=== PATIENT | female | born 1970 | race Caucasian/White ===

== ENCOUNTER 2025-02-05 01:31 | Inpatient (IN) | payer MEDICAID ==
[2025-02-05] VITALS (19 sets, daily range): BP systolic 125–159; BP diastolic 67–88; PULSE 68–96; RESP 12–20; TEMP 97.1–98.5; O2SAT 93–98
[~2025-02-05] VITALS: Ht 165.1 cm; Wt 89.0 kg
--- NOTE | 2025-02-05 01:52 | Physician Documentation ---
History of Present Illness ~ Chief Complaint: Chest Pain Stated Complaint: CHEST PAIN Time Seen by MD: 01:37 OK to notify your PCP?: Yes Source: patient, RN/MD, RN notes reviewed, old records Mode of Arrival: Air Transport Exam Limitations: no limitations HPI 54 year old female presents to the emergency department via Helicopter seen in bed 02 as a transfer from [facility] due to an Nstemi. HPI from [place]: This is a 54 year old lady presents here ([place]) for leg swelling for the fourth day in the row. She has chronically elevated sugars and poorly controlled high blood pressure has been having leg swelling on and off for weeks. She went floating in the river and may have gotten too much sun and has been swelling since then. The patients edema radiates up to her hips with pain radiating up as well as on both sides. She has had intermittent chest pain as a pain left side radiating through to the back, the last episode she had of chest pain was yesterday it resolves with aspirin and nitro, she has not taken any nitro today. She does take her regular aspirin. She does not have a regulatory auditor has not had any recent cardiac evaluation. XR Chest 1 view from [place]: Impression: No evidence of acute cardiopulmonary disease. Medication Reconciliation Allergies: Coded Allergies: metformin (Verified Adverse Reaction, Unknown, VOMIT, DIARRHEA, 02/05/25) morphine (Verified Adverse Reaction, Unknown, HALLUCINATIONS, 02/05/25) Scheduled Amlodipine Besylate (Amlodipine Besylate), 1 TAB PO DAILY, (Reported) Atorvastatin Calcium (Atorvastatin Calcium), 1 TAB PO DAILY, (Reported) Gabapentin (Gabapentin), 1 CAP PO TID, (Reported) Glipizide (Glipizide), 1 TAB PO DAILY, (Reported) Insulin Glargine,Hum.rec.anlog* (Lantus*), 20 UNITS SQ QAM, (Reported) Insulin Lispro (Humalog), SQ TID, (Reported) Latanoprost (Latanoprost), 1 DROP EACHEYE HS, (Reported) Metoprolol Succinate (Metoprolol Succinate), 1 TAB PO DAILY, (Reported) Scheduled PRN Hydrocodone Bit/Acetaminophen 5/325 MG ([place] 5/325 MG), 1-2 TAB PO Q4H PRN for pain, (Reported) Miscellaneous Medications Dorzolamide HCl/Timolol Maleat (Dorzolamide-Timolol Eye Drops), LIAMEYE, (Reported) Ibuprofen (Ibuprofen), (Reported) Past Medical History Past Medical History: Hypertension, Diabetes, Chronic Back Pain Smoking Status: Light Tobacco User Drug Use: methamphetamine Review of Systems All Other Systems at this time: Reviewed and Negative ROS As stated above in the HPI, otherwise all systems are reviewed and negative. Physical Exam Vital Signs: RN Vital Signs have been reviewed: Yes, Temperature: 98.4, Source: Oral, Heart Rate: 80, Respiratory Rate: 18, BP: 130/75, Pulse Oximetry: 94, Weight: 89.000 Pulse Oximetry Reflects: adequate oxygenation Physical Exam General: The patient is well developed, well nourished, nontoxic appearing and is in no acute distress. Skin: Brea, warm and dry with no rashes. HEENT: Head was normocephalic and atraumatic. Eyes - pupils equal, round, reactive to light and accommodation. Extraocular movements were intact. Conjunctivae were nonicteric. Ears - bilateral tympanic membranes were normal. The mouth and oropharynx were clear with moist mucous membranes. There were no pharyngeal exudates or erythema. Neck: Supple and nontender. There was no jugular venous distention, lymphadenopathy, thyromegaly or masses. Chest: Clear to auscultation bilaterally without wheezes, rales or rhonchi. No accessory muscle use. No dullness to percussion. Heart: Rate regular and rhythmic. S1, S2. No murmurs. Palpation of the chest wall was normal. No rubs or thrills. Abdomen: Soft, nontender and nondistended. Positive bowel sounds. No guarding or rebound. No hepatosplenomegaly or palpable masses. Extremities: Positive for 1+ edema extends up to hips. The patient moves all extremities. Pulses were equal and symmetric. Neurologic: Cranial nerves II-XII were intact. Sensation was intact to light touch throughout. Motor strength was 5/5 in all four extremities. Deep tendon reflexes were intact in both upper and lower extremities. Psychologic: The patient was oriented to person, place and time. The patient demonstrated appropriate judgement and insight. Progress Progress Note 0201 :The resident was informed on the patients case and kindly agreed to admission of the patient. Results/Orders Reviewed/noted all lab results: Yes Results/Orders Orders - MISSAEL CAIN MD MG (02/05/25 01:37) PBNP (02/05/25 01:37) Electrocardiogram (02/05/25 01:37) BMP (02/05/25 01:37) Carvedilol Tablet (Coreg Tablet) (02/05/25 01:55) Page Hospitalist (02/05/25 01:52) Echocardiogram (02/05/25 01:56) Hgb A1c (02/05/25 01:48) Completed Orders - MISSAEL CAIN MD Cbc/Diff (02/05/25 01:37) Pt Inr (02/05/25 01:37) PTT (02/05/25 01:37) Hs Troponin I W Calculations (02/05/25 01:37) Nitroglycerin 0.2mg/Hour Patch (Nitro-Du (02/05/25 01:55) Drug Screen, Urine (02/05/25 02:03) Ua W/Microscopic, Cult If Ind (02/05/25 02:35) Medications Received in ER Medications (Trade) Dose Ordered Sig/Jayleen Route PRN Reason Start Time Stop Time Status Last Admin Dose Admin (Coreg tablet) 3.125 mg ONCE PO 02/05/25 01:55 02/05/25 02:18 3.125 MG Vital Signs 02/05/25 02/05/25 01:32 01:40 Temp 98.4 Pulse 80 Resp 16 18 B/P (MAP) 130/75 Pulse Ox 94 Laboratory Tests Test 02/05/25 01:48 White Blood Count 9.8 Red Blood Count 4.78 Hemoglobin 14.6 Hematocrit 40.8 Mean Corpuscular Volume 85.3 Mean Corpuscular Hemoglobin 30.5 Mean Corpuscular Hemoglobin Concent 35.8 Red Cell Distribution Width 13.0 Platelet Count 291 Mean Platelet Volume 8.4 Neutrophils (%) (Auto) 50.1 Lymphocytes (%) (Auto) 37.7 Monocytes (%) (Auto) 7.6 Eosinophils (%) (Auto) 3.8 Basophils (%) (Auto) 0.8 Neutrophils # (Auto) 4.9 Lymphocytes # (Auto) 3.7 Monocytes # (Auto) 0.7 Eosinophils # (Auto) 0.4 Basophils # (Auto) 0.1 CBC Comment Prothrombin Time 9.8 INR International Normalized Ratio 1.0 Activated Partial Thromboplast Time 27 Coagulation Comments Sodium Level 139 Potassium Level 4.2 Chloride Level 104 Carbon Dioxide Level 27.7 Anion Gap 7 L Blood Urea Nitrogen 30 H Creatinine 1.28 H Estimated GFR/1.73 m2 44 BUN/Creatinine Ratio 23.4 H Glucose Level 325 H Calcium Level 7.9 L Magnesium Level 2.2 Troponin I High Sensitivity 146 *H Pro-B-Type Natriuretic Peptide 372 H Albumin 2.8 L Chemistry Comments Re-Evaluation Re-Evaluation : Re-Evaluation: Improved, Unchanged Progress Patient was seen and examined. Patient is given reassurance. Patient arrived by air flight and transferred to our facility. Patient's laboratory work was reordered. Patient's CBC is within normal limits without leukocytosis, anemia or any abnormalities. Patient's chemistry was obtained once again troponin was elevated at 146. ProBNP slightly elevated at 372 albumin low at 2.8 BUN slightly elevated at 30 and creatinine slightly elevated at 1.28 otherwise chemistries were reassuring coagulation was obtained patient did receive Lovenox. Patient's tox screen was positive for opiates but otherwise within normal limits and urinalysis showed some proteinuria as well as some glucosuria and some mild dehydration with a specific gravity of 1.030 patient received nitroglycerin as well as some Coreg. Echocardiogram was ordered. Patient was then admitted to the hospitalist service for possible cardiac catheterization and additional workup. Continuous registered nurse cardiac telemetry interpretation shows normal sinus rhythm heart rate 80s, no ectopy, normal, my interpretation. Pulse oximetry monitor interpretation shows normal oxygenation at 95% room air, normal, my interpretation. EKG/XRAY/CT/US/VASC/MRI EKG : Additional Comment 0136: MIKAELA Cain interpreted EKG to show sinus rhythm at a rate of 71 with a QTc of 4560. Patient had poor R wave progression. Heart Score: Heart Score Response (Comments) Value History Slightly Suspicious 0 EKG Normal 0 Age 45-64 1 Risk Factors 1 or 2 risk factors 1 Troponin 1-2 x's Normal limit 1 Total 3 Medical Decision Making Additional info obtained from: old records Differential Dx:Considerations: Include: angina, aortic dissection, chest wall pain, cholelithiasis, CHF, costochondritis, gastritis, myocardial infarction, pericarditis, pleuritis, pulmonary embolus, other Departure Time of Disposition: 02:07 Disposition: ADMITTED INPATIENT Admitted to Inpatient Unit: yes, to hospitalist Admission Level of Care: PCU with Tele Impression: Primary Impression: NSTEMI (non-ST elevated myocardial infarction) Additional Impressions: Hyperglycemia Renal insufficiency Leg edema, right Condition: Fair Referrals: NO PRIMARY CARE PROVIDER (PCP) Education Educated: Patient Educated regarding: diagnosis Critical Care Note Total Time (mins): 30 Critical Care Note The very real possibility of a deterioration of this patient's condition required the highest level of my preparedness for sudden, emergent intervention. I provided critical care services, which included medication orders, frequent reevaluations of the patient's condition and response to treatment, ordering and reviewing test results, and discussing the case with various consultants. Excludes time spent performing separately billable procedures. The critical care time associated with the care of the patient was 30 minutes. Signature Scribe Signature: Scribed for Missael Cain MD by Christianne Bowden . 02/05/25 02:07 Attestation: The note accurately reflects work and decisions made by me.Missael Cain MD 02/05/25 01:52 MISSAEL CAIN MD Feb 05, 2025 01:52 CHRISTIANNE PATEL Feb 05, 2025 01:59
[2025-02-05 01:53] LABS: MEAN PLATELET VOLUME 8.4 FL (7.4-10.4); RED CELL DISTRIBUTION WIDTH 13.0 % (11.5-14.5)
[2025-02-05 02:08] LABS: APTT 27 SECONDS (22-32); INR 1.0 INR
[2025-02-05 02:16] LABS: CREATININE 1.28 MG/DL (0.40-0.90); PRO BRAIN NATRIURETIC PEPTIDE 372 PG/ML (0-125); TOTAL CARBON DIOXIDE 27.7 MMOL/L (24-32); eCRCL 46 ML/MIN; eGFR 44 ML/MIN
[2025-02-05] MEDS ORDERED: LATA2.5D7 EACHEYE (02:30)
[2025-02-05] MEDS ORDERED: IBUP-1985 (02:30)
[2025-02-05] MEDS ORDERED: ATOR-2 PO (02:30)
[2025-02-05] MEDS ORDERED: LANTUS SQ (02:30)
[2025-02-05] MEDS ORDERED: INSU100I8 SQ (02:30)
[2025-02-05] MEDS ORDERED: GABA-535 PO (02:30)
[2025-02-05] MEDS ORDERED: HYDR-3965 PO (02:30)
[2025-02-05] MEDS ORDERED: METO-384 PO (02:30)
[2025-02-05] MEDS ORDERED: GLIP5TAB23 PO (02:30)
[2025-02-05] MEDS ORDERED: AMLO5TAB16 PO (02:30)
[2025-02-05] MEDS ORDERED: DORZ10DR10 EACHEYE (02:30)
[2025-02-05 02:44] LABS: LEUKOCYTE ESTERASE ,URINE NEGATIVE (Neg); NITRITES, URINE NEGATIVE (Neg); OCCULT BLOOD,URINE SMALL (Neg)
[2025-02-05 02:45] LABS: UA COLLECTION TYPE CLN CATCH MIDSTREAM
[2025-02-05 02:51] LABS: MUCUS STRANDS FEW /LPF (Neg); SQUAMOUS EPITHELIAL CELL,UR MANY /LPF (FEW)
[2025-02-05 02:52] LABS: URINE AMPHETAMINE SCREEN NEGATIVE (Neg); URINE BARBITUATE SCREEN NEGATIVE (Neg); URINE BENZODIAZEPINES SCREEN NEGATIVE (Neg); URINE CANNABINOID SCREEN NEGATIVE (Neg); URINE COCAINE SCREEN NEGATIVE (Neg); URINE METHADONE SCREEN NEGATIVE (Neg); URINE OPIATE SCREEN POSITIVE (Neg); URINE PHENCYCLIDINE SCREEN NEGATIVE (Neg)
[2025-02-05 02:53] LABS: AMORPHOUS URATES 1+; HYALINE CASTS 0-3 /LPF (NEGATIVE)
[2025-02-05] MEDS ORDERED: magnesium sulf-water 2g/50mL 50 ML IV PRN (03:30)
[2025-02-05] MEDS ORDERED: potassium Cl 20 mEq SR tablet PO PRN ×2 (03:30)
[2025-02-05] MEDS ORDERED: HYDROcodone/acetaminophen 5mg/325mg tablet PO PRN ×2 (03:30→17:15)
[2025-02-05] MEDS ORDERED: magnesium sulf-water 4G/100mL 100 ML IV PRN (03:30)
[2025-02-05] MEDS ORDERED: mag hydrox/Alum hydrox/simeth 30ml oral suspension PO PRN (03:30)
[2025-02-05] MEDS ORDERED: ondansetron/PF 4mg/2ml inj IV PRN (03:30)
[2025-02-05] MEDS ORDERED: magnesium hydroxide 30ml (MOM) UD suspension PO PRN (03:30)
[2025-02-05] MEDS ORDERED: potassium Cl 40MEQ/1/2NS 520ml 520 ML IV PRN (03:30)
[2025-02-05] MEDS ORDERED: magnesium Cl slow-release 64mg tablet PO PRN (03:30)
[2025-02-05] MEDS ORDERED: dextrose 50%-water 50ml dispensing syringe IV PRN ×3 (03:35→13:20)
[2025-02-05] MEDS ORDERED: DEXTROSE 15 GM of carb/4 tabs (each vial/BOTTLE has 4 tablets) PO PRN ×2 (03:35)
[2025-02-05] MEDS ORDERED: glucagon, human recombinant 1mg kit SUBCUT PRN ×2 (03:35→13:20)
[2025-02-05] MEDS ORDERED: aminophylline 500mg/20ml vial IV PRN (03:45)
[2025-02-05] MEDS ORDERED: metoprolol tartrate 1mg/ml inj IV PRN (03:45)
--- NOTE | 2025-02-05 03:50 | HISTORY AND PHYSICAL-Residence ---
History & Physical Providers to CC Resident Creating Document: EDE TSANG, RES CC: PADMINI PENNINGTON MD ~ History of Present Illness Reason for Admit\Complaint: Leg swelling History of Present Illness A 54-year-old female with past medical history of diabetes mellitus type 2, CHF, HLD presented to the ED as a transfer from [facility] in view of leg swelling over the last two weeks. Patient reported that was intermittent swelling of feet since last two weeks which got worse and was presented to the hospital. Patient endorses orthopnea but denies PND. Patient also had shortness of breaths which is described as not being able to walk for more than a block over the last two weeks. Patient denies decreased urine output, chest pain, palpitations. But from the transfer records, patient also had intermittent left-sided chest pain with radiation to the back that relieved on taking aspirin. Allergies: Coded Allergies: metformin (Verified Adverse Reaction, Unknown, VOMIT, DIARRHEA, 02/05/25) morphine (Verified Adverse Reaction, Unknown, HALLUCINATIONS, 02/05/25) Home Medications Home Medications Active Reported Metoprolol Succinate 50 Mg Tab.sr.24h 1 Tab PO DAILY Latanoprost 0.005 % Drops 1 Drop EACHEYE HS Lantus* (Insulin Glargine) 100 Unit/1 Ml Vial 20 Units SQ QAM Humalog (Insulin Lispro) 100 Unit/Ml Insuln.pen SQ TID Ibuprofen 600 Mg Tablet [place] 5/325 MG (Acetaminophen/Hydrocodone Bitart) 5 Mg/325 Mg Tablet 1-2 Tab PO Q4H PRN Glipizide 5 Mg Tablet 1 Tab PO DAILY Gabapentin 400 Mg Capsule 1 Cap PO TID Dorzolamide-Timolol Eye Drops (Dorzolamide HCl/Timolol Maleat) 22.3 Mg-6.8 Mg/Ml Drops EACHEYE Amlodipine Besylate 5 Mg Tablet 1 Tab PO DAILY Atorvastatin Calcium 80 Mg Tablet 1 Tab PO DAILY Past Medical History Past Medical History Diabetes mellitus type 2 Chronic back pain HLD HTN CHF Past Surgical History Surgical History Comment Appendectomy 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 Antunez Drug Use: Methamphetamine ROS ROS All other systems reviewed in full and negative except for the pertinent positives mentioned in the HPI Exam Vitals: Vital Signs Date Time Temp Pulse Resp B/P (MAP) Pulse Ox O2 Delivery O2 Flow Rate FiO2 02/05/25 02:30 85 12 166/101 (122) 98 02/05/25 01:32 98.4 General: General: Alert, awake, oriented, not in acute distress HEENT: PERRLA, no icterus, pallor, lymphadenopathy, carotid bruit Respiratory system: Bilateral vesicular breath sounds heard, no adventitious breath sounds CVS: S1-S2 heard, no murmurs/rubs/gallop GI: Oblique surgical scar present in the left side, Soft, nontender, no organomegaly, no guarding/rigidity, bowel sounds present Neuro: No focal neurological deficits present Extremities: Bilateral pitting edema 3+ present Skin: Warm and dry Diagnostic Data Last Recorded Lab Results: 02/05/25 0148 02/05/25 0148 Diagnostic Data: Laboratory Tests Test 02/05/25 01:48 Prothrombin Time 9.8 SECONDS (9.0-12.0) INR International Normalized Ratio 1.0 INR Activated Partial Thromboplast Time 27 SECONDS (22-32) Coagulation Comments Advance Care Planning Advanced Care plannin - 30 Minutes (I spent 20 minutes discussing various resuscitative measures and the patient decided to be full code) Additional Plan Assessment: 54-year-old female with multiple medical comorbidities presented to the ED as a transfer from [facility] in view of leg swelling over the last two weeks. Patient is admitted for the evaluation management of acute exacerbation of CHF and CAD workup. Plan: Acute exacerbation of CHF, pending echo ACC Stage C/ NYHA Class III Elevated proBNP Chest x-ray at OSH: No cardiopulmonary disease Follow up with echo One time dose of IV Lasix 60 mg given, titrate Lasix as required Consider optimization with GDM T Strict Is&Os Mild Troponinemia CAD workup EKG at OSH: Sinus rhythm with multiple PVCs EKG at [facility]: Sinus rhythm Lexiscan in a.m. Continue aspirin 81 mg Prerenal TEVIN probably secondary to renal tubular stasis Elevated BUN and creatinine Continue to monitor BMP Diabetes mellitus type 2 Follow up with A1c Currently elevated blood sugars Not in acidosis, ketosis Hyper/hypoglycemia protocol: Lantus 18 units, moderate dose sliding scale insulin Readjust in a.m. as per needs HLD Follow up with lipid panel Med rec pending HTN Med rec pending Tobacco use Nicotine patch U tox positive for opiates UA positive for proteinuria, evaluate for significant proteinuria indicating CKD Code status: Full code Diet: NPO DVT prophylaxis: Heparin Anticoagulation: Aspirin Disposition: Admit to PCU, follow up with echoEloy in a.m. Ede Tsang MD Internal Medicine, PGY 2 Discussed case with resident and agree with the assessment and plan above with no changes. Padmini Pennington MD Critical Care Date of Service: Feb 05, 2025 Billing Provider: PADMINI PENNINGTON MD, SIVA, RES Feb 05, 2025 03:50 PADMINI PENNINGTON MD Feb 06, 2025 10:13
[2025-02-05] MEDS: nicotine 21mg patch - 24 hr TD ONE (04:04)
[2025-02-05] MEDS: furosemide 10 MG/1 ML 10ml inj IV ONE (04:08)
[2025-02-05] MEDS: insulin glargine (Lantus) pen - multi-dose SQ ONE (04:26)
[2025-02-05] MEDS: K and/or MAG REPLACEMENT MC SCH (08:00)
--- NOTE | 2025-02-05 08:04 | ELECTROCARDIOGRAPH REPORT ---
[facility] Test Date: 2025-02-05 Test Time: 01:36:41 Pat Name: ROMULO MCGUIRE Department: EMERGENCY ROOM Room: [place] [address] B Gender: F Verifier: : 1970 Requested By: SLAVA CAIN Order Number: [id number] Reading MD: Dr. Slava Cain Measurements Intervals [place] Rate: 71 P: 47 ID: [id number] QRS: 49 QRSD: 109 T: 29 QT: 419 QTc: 456 Interpretive Statements Sinus rhythm Probable left atrial enlargement Anterior infarct, old Baseline wander in lead(s) V3 Electronically Signed On 02-05-2025 18:16:[address] Slava Cain Please click the below link to view image of tracing.
[2025-02-05] MEDS: INSULIN LISPRO 100 UNIT/ML INSULN.PEN MULTI-DOSE SQ SCH ×3 (08:32→19:21)
[2025-02-05] MEDS: EMPAGLIFLOZIN 10 MG TABLET PO SCH (09:13)
[2025-02-05] MEDS: aspirin 81mg, enteric-coated 1 TAB TABLET.DR PO SCH (09:16)
[2025-02-05] MEDS: docusate sod 100mg capsule PO SCH (09:16)
[2025-02-05] MEDS: heparin, porcine 5000 units/ml vial SQ SCH (09:18)
[2025-02-05] MEDS: regadenoson 0.4mg/5ml syringe IV PRN (11:10)
--- NOTE | 2025-02-05 12:41 | RADIOLOGY REPORT ---
Reason for study/Clinical History: CAD workup Comparison Study: None Myocardial Perfusion Study with SPECT Technique: The patient received an intravenous injection of 8.4 mCi of technetium-99m Sestamibi whi sim at rest. After a short delay, SPECT tomographic images of the heart were obtained. The patient molly meza went to the stress lab where they received an intravenous Lexiscan utilizing standard protocol. 33.0 mCi of technetium-99m Sestamibi was injected intravenously immediately after the start of the infusion. Gated SPECT tomographic images of the heart were acquired and processed. Findings: Rotating planar images show no significant attenuation artifact. The left ventricular size is within normal limits. Stress tomographic images demonstrate normal perfusion. Resting tomographic images demonstrate a similar pattern. Gated portion of the study shows normal wall motion and myocardial thickening. The left ventricular ejection fraction is 57%. (normal greater than 50%) Impression: Normal left ventricular size, wall motion, and function, without evidence of infarction or of myocard ium at ischemic risk. The left ventricular ejection fraction is 57%.
[2025-02-05 13:51] LABS: CHOL/HDL RATIO 5.1 (0.00-4.99); LDL CHOLESTEROL 90 MG/DL (50-100)
[2025-02-05] MEDS ORDERED: hydrALAZINE 20mg/ml inj. IV PRN (14:45)
[2025-02-05] MEDS ORDERED: albuterol 2.5 MG/3 ML nebule NEB PRN (14:50)
[2025-02-05] MEDS: metoprolol succinate 25mg (24-HOUR) SR. Tablet PO ONE (15:41)
--- NOTE | 2025-02-05 15:47 | VASCULAR REPORT ---
Bilateral lower extremity venous duplex Clinical History: Leg swelling Comparison: None Technique: Duplex Doppler evaluation of the deep venous systems of both lower extremities from the common femora l veins to the popliteal veins including color Doppler and spectral/pulsed waveform analysis was perf ormed. Findings: RIGHT SIDE: The common femoral vein demonstrates appropriate compressibility and waveform variability. There is compressibility/patency of the great saphenous vein at the proximal thigh. The femoral vein demonstrates appropriate compressibility and waveform variability. The deep femoral vein demonstrates appropriate compressibility and waveform variability. The popliteal vein demonstrates appropriate compressibility and waveform variability. There is normal compressibility at the tibioperoneal trunk. LEFT SIDE: The common femoral vein demonstrates appropriate compressibility and waveform variability. There is compressibility/patency of the great saphenous vein at the proximal thigh. The femoral vein demonstrates appropriate compressibility and waveform variability. The deep femoral vein demonstrates appropriate compressibility and waveform variability. The popliteal vein demonstrates appropriate compressibility and waveform variability. There is normal compressibility at the tibioperoneal trunk. Impression: No right or left femoropopliteal venous thrombosis.
[2025-02-05] MEDS: HYDROcodone/acetaminophen 5mg/325mg tablet PO PRN (17:23)
[2025-02-05] MEDS: OMEGA-3/DHA/EPA/FISH OIL 1 EACH CAPSULE.DR PO SCH (19:18)
[2025-02-05] MEDS: latanoprost 0.005% 2.5ml ophthalmic drops EACHEYE SCH (21:30)
[2025-02-05] MEDS: insulin glargine (Lantus) pen - multi-dose SQ SCH (21:37)
[2025-02-06] VITALS (10 sets, daily range): BP systolic 121–134; BP diastolic 67–81; PULSE 72–84; RESP 12–20; TEMP 97.1–97.6; O2SAT 80–96
[2025-02-06 06:53] LABS: MEAN PLATELET VOLUME 8.9 FL (7.4-10.4); RED CELL DISTRIBUTION WIDTH 13.0 % (11.5-14.5)
[2025-02-06 07:17] LABS: CREATININE 1.40 MG/DL (0.40-0.90); TOTAL CARBON DIOXIDE 28.9 MMOL/L (24-32); eCRCL 42 ML/MIN; eGFR 39 ML/MIN
[2025-02-06] MEDS: metoprolol succinate 25mg (24-HOUR) SR. Tablet PO SCH (08:47)
[2025-02-06] MEDS: normal saline 1000ml 1,000 ML IV SCH (08:54)
[2025-02-06] MEDS: INSULIN LISPRO 100 UNIT/ML INSULN.PEN MULTI-DOSE SQ SCH (10:43)
--- NOTE | 2025-02-06 12:12 | CARDIOLOGY REPORT ---
APPROVED REPORT EXAM: Comprehensive 2D, Doppler, and color-flow Echocardiogram. Patient Location: [facility] Blood Pressure: 125/75 mmHg Heart Rate: 70 bpm Rhythm: NSR Indications Abnormal EKG NSTEMI Chest Pain Hypertension Hx Meth Troponin 146 Pro BNP 372 No territory representative No previous echo 2D Dimensions LA Diam4.3 cm IVSd 1.3 (0.7-1.1cm) LVDd 4.0 cm PWd 1.2 (0.7-1.1cm) IVSs 1.5 (0.8-1.2cm) LVDs 2.8 (2.5-4.0cm) Aortic Root(2D) 3.1 cm PWs 1.6 (0.8-1.2cm) LVOT Diameter 2.17 (1.8-2.4cm) LVEF(%) 58.2 (>50%) Ao Asc Diam.3.42 cmIVC 11.58 mm FS (%) 30.3 % SV 41.6 ml CO 2.8 L/min M-Mode Dimensions MV EPSS 0.9 (<0.5cm) Aortic Valve AoV Peak Adonis. 144.8 cm/s AoV VTI 30.3 cm AO Peak GR. 8.4 mmHg AO Mean GR. 5 mmHg LVOT VTI 24.84 cm LVOT Peak Adonis. 115.4 cm/s LIDYA(VTI)/BSA 3.03 cm2/m2 LIDYA (VTI) 3.03 cm2 Mitral Valve MV E Velocity 89.4 cm/s MV Peak Gr. 5 mmHg MV DECEL TIME 276 ms MV A Velocity 83.4 cm/s MV PHT 68 ms E/A Ratio 1.1 MVA (PHT) 3.24 cm2 MV IIbz048.4 cm/s TDI Medial E' P. V 5.67 cm/s E/Medial E' 15.8 Tricuspid Valve RAP ESTIMATE 10 mmHg Pulmonary Vein S1 Velocity 38.1 cm/s D2 Velocity 26.8 cm/s PVa Pjlwqkld78.3 cm/s PVa Ujipqdeq25 msec LEFT VENTRICLE Normal LV size and function. Mild concentric hypertrophy. LVEF is 60%. RIGHT VENTRICLE RV appears normal in size and contractility. ATRIA Left atrium is mildly dilated. AORTIC VALVE Trileaflet AV appears sclerotic without stenosis. Trace insufficiency. MITRAL VALVE MV is thickened with no annular calcification or stenosis. Trace mitral regurgitation. TRICUSPID VALVE The tricuspid valve is normal in structure. Trace tricuspid regurgitation. PULMONIC VALVE The pulmonary valve is normal in structure. Trace pulmonic regurgitation. GREAT VESSELS The aortic root is normal in size. The ascending aorta is normal in size. The IVC is normal in size a nd collapses >50% with inspiration. PERICARDIUM Mild concentric hypertrophy with no evidence of hemodynamic compromise. Other Information Study Quality: Adequate Conclusion Normal LV size and function. Mild concentric hypertrophy. LVEF is 60%. RV appears normal in size and contractility. Left atrium is mildly dilated. Trileaflet AV appears sclerotic without stenosis. Trace insufficiency. MV is thickened with no annular calcification or stenosis. Trace mitral regurgitation. The tricuspid valve is normal in structure. Trace tricuspid regurgitation. The pulmonary valve is normal in structure. Trace pulmonic regurgitation. Mild concentric hypertrophy with no evidence of hemodynamic compromise.
--- NOTE | 2025-02-06 12:14 | PROGRESS NOTE ---
Daily Progress Note Providers to CC ~ Antibiotic Timeout Antibiotic Ordered?: No Subjective No acute events overnight. Patient examined at bedside. No new complaints, not in acute distress. Patient denies chest pain, sob, palpitations, abdominal pain, n/v/d. Vss, on room air, labs notable for slightly uptrended Cr after diuresis yesterday. Diuretics discontinued, IVF started. Objective Vital Signs Date Time Temp Pulse Resp B/P (MAP) Pulse Ox O2 Delivery O2 Flow Rate FiO2 02/06/25 10:41 13 02/06/25 08:52 80 02/06/25 08:01 94 Room Air* 0 21 02/06/25 06:00 97.5 123/67 (85) Result Diagram: 02/06/25 0546 02/06/25 0546 Coagulation Studies Laboratory Tests Test 02/05/25 01:48 02/06/25 10:50 Prothrombin Time 9.8 SECONDS (9.0-12.0) INR International Normalized Ratio 1.0 INR Activated Partial Thromboplast Time 27 SECONDS (22-32) Coagulation Comments D-Dimer 0.36 MG/L FEU (0-0.50) D-Dimer Comment Problem\Assessment\Plan 54-year-old female with multiple medical comorbidities presented to the ED as a transfer from [facility] in view of leg swelling over the last two weeks. Patient is admitted for the evaluation management of acute exacerbation of CHF and CAD workup. Assessment & Plan Acute decompensated systolic heart failure Type II MA 2/2 CHF Prerenal TEVIN 2/2 vasomotor nephropathy- POA Nephrotic syndrome -Lexiscan negative, LVEF 60%, no significant VHD, normal d-dimer, Well' score 0, will not pursue CTA -Cr uptrended after total 80mg of Lasix and spironolactone, diuretics discontinued, fluid challenge today IDDM HLD HTN Tobacco abuse Malnutrition, moderate- POA -A1c 11.1, LDL 90, TGL 635, Lantus dose adjusted, continue pre/postprandial supplemental, start ezetimbe, omega3 Code status: Full code DVT/VTE prophylaxis: heparin Date of Service: Feb 06, 2025 Billing Provider: FITZ KING Common Visit Codes: [id number] INP/OBS CARE(HIGH) FITZ KING Feb 06, 2025 12:14
[2025-02-06] MEDS ORDERED: OMEGA-3/DHA/EPA/FISH OIL 1 EACH CAPSULE.DR PO ONE (12:20)
[2025-02-06] MEDS: OMEGA-3/DHA/EPA/FISH OIL 1 EACH CAPSULE.DR PO SCH (19:11)
[2025-02-06] MEDS: insulin glargine (Lantus) pen - multi-dose SQ SCH (20:52)
[2025-02-07 02:00] VITALS: PULSE 70; RESP 12
[2025-02-07 06:00] VITALS: BP 129/78; PULSE 90; RESP 14; TEMP 97.6; O2SAT 95
[2025-02-07 06:33] LABS: MEAN PLATELET VOLUME 9.0 FL (7.4-10.4); RED CELL DISTRIBUTION WIDTH 12.9 % (11.5-14.5)
[2025-02-07 07:13] LABS: CREATININE 1.08 MG/DL (0.40-0.90); TOTAL CARBON DIOXIDE 23.2 MMOL/L (24-32); eCRCL 55 ML/MIN; eGFR 53 ML/MIN
[2025-02-07] MEDS ORDERED: EMPA10TA PO (07:56)
[2025-02-07] MEDS ORDERED: NOR5T PO (07:56)
[2025-02-07] MEDS ORDERED: LISI10TA27 PO (07:57)
[2025-02-07] MEDS ORDERED: LANTUS SQ (07:58)
[2025-02-07 08:00] VITALS: RESP 14; O2SAT 95
[2025-02-07 08:31] VITALS: PULSE 87; RESP 16; O2SAT 92
[2025-02-07 09:11] VITALS: BP_SYST 129; PULSE 90
[2025-02-07] MEDS ORDERED: FURO-150 PO (09:25)
[2025-02-07] MEDS ORDERED: INSU100I8 SQ (09:25)
[2025-02-07 10:23] VITALS: RESP 16
--- NOTE | 2025-02-07 11:29 | DISCHARGE SUMMARY ---
Discharge Summary Providers to CC ~ Discharge Summary Admission Diagnosis: Type II UT, Acute CHF Hospital Course DATE OF ADMISSION: 02/05/25 DATE OF DISCHARGE: 02/07/25 Discharge Diagnosis\\Comment: Acute decompensated systolic heart failure Type II UT 2/2 acute CHF Prerenal TEVIN 2/2 vasomotor nephropathy- POA Nephrotic syndrome IDDM HLD HTN Tobacco abuse Malnutrition, moderate- POA Operations\\Procedures: Stress test Consultants: None Complications: None Condition on DC: Stable New Medications: Empagliflozin (Jardiance) 10 Mg Tablet 1 TAB PO DAILY for 30 Days, #30 TAB 0 Refills Furosemide* (Lasix*) 20 Mg Tablet 1 TAB PO DAILY for 30 Days, #30 TAB Amlodipine Besylate (Amlodipine Besylate) 5 Mg Tablet 10 MG PO DAILY for 90 Days, #180 TAB Insulin Glargine,Hum.rec.anlog* (Lantus*) 100 Unit/1 Ml Vial 28 UNIT SQ HS for 30 Days, #9 ML Insulin Lispro (Humalog) 100 Unit/Ml Insuln.pen 0 UNIT SQ ACHS for 30 Days, #12 ML SLIDING SCALE, MEALTIME INSULIN Less than 150: 0 units 150-199: 2 units 200-249: 4 units 250-299: 7 units 300-349: 10 units 350-400: 13 units Greater than 400: CALL Lisinopril (Lisinopril) 10 Mg Tablet 10 MG PO DAILY for 90 Days, #90 TAB Continued Medications: Atorvastatin Calcium (Atorvastatin Calcium) 80 Mg Tablet 1 TAB PO DAILY Dorzolamide HCl/Timolol Maleat (Dorzolamide-Timolol Eye Drops) 22.3 Mg-6.8 Mg/Ml Drops EACHEYE Gabapentin (Gabapentin) 400 Mg Capsule 1 CAP PO TID Glipizide (Glipizide) 5 Mg Tablet 1 TAB PO DAILY Hydrocodone Bit/Acetaminophen 5/325 MG (Crane 5/325 MG) 5 Mg/325 Mg Tablet 1-2 TAB PO Q4H PRN for pain Ibuprofen (Ibuprofen) 600 Mg Tablet Latanoprost (Latanoprost) 0.005 % Drops 1 DROP EACHEYE HS Metoprolol Succinate (Metoprolol Succinate) 50 Mg Tab.sr.24h 1 TAB PO DAILY Discontinued Medications: Amlodipine Besylate (Amlodipine Besylate) 5 Mg Tablet 1 TAB PO DAILY Insulin Glargine,Hum.rec.anlog* (Lantus*) 100 Unit/1 Ml Vial 20 UNITS SQ QAM Insulin Lispro (Humalog) 100 Unit/Ml Insuln.pen SQ TID Discharge Summary: History of Present Illness From H&P: "A 54-year-old female with past medical history of diabetes mellitus type 2, CHF, HLD presented to the ED as a transfer from [facility] in view of leg swelling over the last two weeks. Patient reported that was intermittent swelling of feet since last two weeks which got worse and was presented to the hospital. Patient endorses orthopnea but denies PND. Patient also had shortness of breaths which is described as not being able to walk for more than a block over the last two weeks. Patient denies decreased urine output, chest pain, palpitations. But from the transfer records, patient also had in termittent left-sided chest pain with radiation to the back that relieved on taking aspirin." Hospital Course Findings were notable for negative mildly elevated NT-pBNP, negative Lexiscan, TTE revealing LVEF of 60% without significant valvular heart disease, normal D- dimer, we will score of 0. Patient was treated with GDMT including diuretics. Diuretics were discontinued although lower extremity edema improved due to worsening renal function. Patient was started on intravenous fluids which she responded well to. With fluids, acute kidney injury resolving. Patient did not experience further complications throughout the entire hospital stay and remained clinically and hemodynamically stable. Patient was seen and examined on the day of discharge. On day of discharge, vss and labs unremarkable. Telemetry remained sinus in 70s. All labs, diagnostic workups, discharge plan discussed with patient in details during visit before discharge. All questions and concerns answered to the best of my professional knowledge. Patient is to be discharged to home to self and to follow-up with PCP within 2 weeks. Physical Exam General: Generalized weakness, A&Ox 3, NAD HEENT: Normocephalic, PERRLA Neck: Supple, trachea midline, no JVD Chest: Clear to auscultation bilaterally Cardiovascular: RRR, S1&S2 GI: Soft and nontender Extremities: +1 edema b/l lower extremities SINTER FEEDER: CN II-XII intact, no focal deficits Musculoskeletal: No paraspinal muscle tenderness, no muscle spasm Skin: Warm and intact *Problems/Diagnosis: (1) CHF exacerbation Status: Acute (2) IDDM (insulin dependent diabetes mellitus) Status: Chronic (3) Renal insufficiency Status: Acute Total Time Spent on D/C: > 30 Minutes Date of Service: Feb 07, 2025 Billing Provider: FITZ KING Common Visit Codes: 58638-MAS/OBS DISCH DAY >30min FITZ KING Feb 07, 2025 11:28
[2025-02-07] MEDS ORDERED: insulin glargine (Lantus) pen - multi-dose SQ SCH (21:00)
== END 2025-02-07 13:37 | disposition home or self-care (01) | DRG 194 ==
LOC: ER 01:32 → ED HOLD 02:03 → PCU 3S 03:34
PROVIDERS: ADMIT Internal Medicine Pulmonary Disease; ATTEND Nurse Practitioner Family
PROC: 4A02XM4 Measurement of Cardiac Total Activity, External Approach (ICD-10-PCS; principal; 2025-02-05)
PROC: 3E033HZ Introduction of Radioactive Substance into Peripheral Vein, Percutaneous Approach (ICD-10-PCS; 2025-02-05)
DX: I11.0 Hypertensive heart disease with heart failure (principal); N17.0 Acute kidney failure with tubular necrosis; I21.A1 Myocardial infarction type 2; E44.0 Moderate protein-calorie malnutrition; E11.65 Type 2 diabetes mellitus with hyperglycemia; I50.23 Acute on chronic systolic (congestive) heart failure; E78.5 Hyperlipidemia, unspecified; G89.29 Other chronic pain; N04.9 Nephrotic syndrome with unspecified morphologic changes; Z88.8 Allergy status to other drugs, medicaments and biological substances; Z79.4 Long term (current) use of insulin; Z79.84 Long term (current) use of oral hypoglycemic drugs; Z87.891 Personal history of nicotine dependence; Z68.32 Body mass index [BMI] 32.0-32.9, adult
CPT/HCPCS: 36415; 78452; 80048; 80061; 80076; 80305; 81001; 82948; 83036; 83605; 83735; 83880; 84132; 84484; 85025; 85379; 85610; 85730; 87040; 87081; 93005; 93017; 93306; 93970; 94760; 97116; 97161; 97530; 99291; A6250; A9500; G0378; J1644; J1815; J1938; J2785; J7030

== ENCOUNTER 2025-02-25 00:25 | Inpatient (IN) | payer MEDICAID ==
[2025-02-25] VITALS (7 sets, daily range): BP systolic 126–142; BP diastolic 59–81; PULSE 67–71; RESP 12–22; TEMP 97–98.2; O2SAT 93–96
[~2025-02-25] VITALS: Ht 165.1 cm; Wt 82.5 kg
[~2025-02-25 00:25] MED LIST: ATOR-2 PO; DORZ10DR10 EACHEYE; EMPA10TA PO; FURO-150 PO; GABA-535 PO; GLIP5TAB23 PO; HYDR-3965 PO; IBUP600T52; INSU100I8 SQ; LANTUS SQ; LATA2.5D7 EACHEYE; LISI10TA27 PO; METO-384 PO; NOR5T PO
[2025-02-25 00:57] LABS: MEAN PLATELET VOLUME 8.5 FL (7.4-10.4); RED CELL DISTRIBUTION WIDTH 13.1 % (11.5-14.5)
--- NOTE | 2025-02-25 00:59 | Physician Documentation ---
History of Present Illness ~ Chief Complaint: Chest Pain Stated Complaint: XFER Time Seen by MD: 00:31 HPI Patient presents to the emergency room sent from [facility] for NSTEMI. Patient states that she has been having on and off pain in her chest over the past few days. She was admitted here recently and had a stress test which was negative. She did have mildly elevated troponins at sending facility similar to previous. Dr. Handley, sock turner, was contacted who recommended cardiac catheterization for investigation into these elevated troponins. [facility] was at capacity therefore they arrange to have patient transferr ed here. No current chest pain. No pattern to exacerbating factors but nitroglycerin in his reported to have improved symptoms. Denies one-sided leg pain or swelling Medication Reconciliation Allergies: Coded Allergies: metformin (Verified Adverse Reaction, Unknown, VOMIT, DIARRHEA, 02/25/25) morphine (Verified Adverse Reaction, Unknown, HALLUCINATIONS, 02/25/25) Scheduled Amlodipine Besylate (Amlodipine Besylate), 10 MG PO DAILY Atorvastatin Calcium (Atorvastatin Calcium), 1 TAB PO DAILY, (Reported) Empagliflozin (Jardiance), 1 TAB PO DAILY Furosemide* (Lasix*), 1 TAB PO DAILY Gabapentin (Gabapentin), 1 CAP PO TID, (Reported) Glipizide (Glipizide), 1 TAB PO DAILY, (Reported) Insulin Glargine,Hum.rec.anlog* (Lantus*), 28 UNIT SQ HS Insulin Lispro (Humalog), 0 UNIT SQ ACHS Latanoprost (Latanoprost), 1 DROP EACHEYE HS, (Reported) Lisinopril (Lisinopril), 10 MG PO DAILY Metoprolol Succinate (Metoprolol Succinate), 1 TAB PO DAILY, (Reported) Scheduled PRN Hydrocodone Bit/Acetaminophen 5/325 MG ([place] 5/325 MG), 1-2 TAB PO Q4H PRN for pain, (Reported) Miscellaneous Medications Dorzolamide HCl/Timolol Maleat (Dorzolamide-Timolol Eye Drops), EACHEYE, (Reported) Ibuprofen (Ibuprofen), (Reported) Past Medical History Past Medical History: Hypertension, Diabetes, Chronic Back Pain Patient History: Patient reports no known family medical history. Drug Use: methamphetamine Review of Systems ROS All review of systems negative except as per HPI Physical Exam Vital Signs: Temperature: 97.9, Source: Oral, Heart Rate: 65, Respiratory Rate: 15, BP: 129/81, Pulse Oximetry: 95, Weight: 82.500 Oxygen Flow Rate: 0 Physical Exam General: Patient is awake, alert, oriented x4 in no acute distress Head: Normocephalic and atraumatic. Eyes: Conjunctival normal. EOMI. PERRL. ENT: Mucous membranes moist. Neck: Supple, trachea is midline. Chest: Clear to auscultation bilaterally without rales, rhonchi, or wheezes. There is no accessory muscle use or retractions. Cardiac: RRR without murmurs, gallops, or rubs. Extremities: Normal strength. Normal range of motion. No deformities or edema. No calf tenderness to palpation Progress Results/Orders Results/Orders Orders - DALLIN KING MD Heparin 25,000 Unit/250ml Bag (Heparin 2 (02/25/25 00:35) Heparin 10,000 Unit/Ml 1ml (Heparin 10,0 (02/25/25 00:35) Cbc/Diff (02/26/25 03:00) Cbc/Diff (02/27/25 03:00) Cbc/Diff (02/28/25 03:00) Cbc/Diff (03/01/25 03:00) Cbc/Diff (03/02/25 03:00) Cardiac Ptt (02/25/25 03:30) Electrocardiogram (02/25/25 01:28) Chest,Single View (02/25/25 01:49) BMP (02/25/25 01:28) Urinalysis (02/25/25 01:28) Hs Troponin I W Calculations (02/25/25 01:28) Hs Troponin I W Calculations (02/25/25 03:28) Completed Orders - DALLIN KING MD Pt Inr (02/25/25 00:31) PTT (02/25/25 00:31) Cbc/Diff (02/25/25 00:31) Message To Nursing (02/25/25 00:55) Message To Nursing (02/25/25 01:30) Chest,Single View (02/25/25 01:49) Medications Received in ER Medications (Trade) Dose Ordered Sig/Jayleen Route PRN Reason Start Time Stop Time Status Last Admin Dose Admin Heparin Sodium/ Dextrose 250 ml @ 10 mls/hr Q25H PRN IV TO MAINTAIN PTT WITHIN RANGE 02/25/25 00:35 02/25/25 01:05 10 MLS/HR Vital Signs 02/25/25 00:41 Temp 97.9 Pulse 65 Resp 15 B/P (MAP) 129/81 Pulse Ox 95 O2 Flow Rate 0 Laboratory Tests Test 02/25/25 00:32 02/25/25 00:48 02/25/25 01:08 02/25/25 01:47 Urine Comment White Blood Count 8.8 Red Blood Count 4.83 Hemoglobin 14.4 Hematocrit 41.6 Mean Corpuscular Volume 86.1 Mean Corpuscular Hemoglobin 29.8 Mean Corpuscular Hemoglobin Concent 34.6 Red Cell Distribution Width 13.1 Platelet Count 260 Mean Platelet Volume 8.5 Neutrophils (%) (Auto) 53.9 Lymphocytes (%) (Auto) 36.2 Monocytes (%) (Auto) 6.3 Eosinophils (%) (Auto) 2.7 Basophils (%) (Auto) 0.9 Neutrophils # (Auto) 4.7 Lymphocytes # (Auto) 3.2 Monocytes # (Auto) 0.6 Eosinophils # (Auto) 0.2 Basophils # (Auto) 0.1 CBC Comment Prothrombin Time 10.5 INR International Normalized Ratio 1.0 Activated Partial Thromboplast Time 37 H Coagulation Comments Glucometer 161 H Chemistry Comments EKG/XRAY/CT/US/VASC/MRI EKG : Additional Comment EKG interpreted by myself shows time of 0133, rate 66, sinus rhythm, right axis deviation, no ST changes Chest X-Ray : Additional Comments Chest x-ray interpreted by myself shows no effusions, no infiltrates and normal cardiac silhouette Medical Decision Making Findings Patient presents to the emergency room for evaluation of chest pain as per HPI sent from alternative facility on heparin. Patient does have mildly elevated troponins in his had a recent negative stress test however Dr. Kearney was consulted and recommended cardiac catheterization. We will admit for further investigation Departure Admitted to Inpatient Unit: yes, to hospitalist Impression: Primary Impression: NSTEMI (non-ST elevated myocardial infarction) Referrals: NO PRIMARY CARE PROVIDER (PCP) Critical Care Note Total Time (mins): 45 Critical Care Note The very real possibility of a deterioration of this patient's condition required the highest level of my preparedness for sudden, emergent intervention. I provided critical care services, which included medication orders, frequent reevaluations of the patient's condition and response to treatment, ordering and reviewing test results, and discussing the case with various consultants. E xcludes time spent performing separately billable procedures. The critical care time associated with the care of the patient was 45 minutes not counting procedures Signature Scribe Signature: No scribe Attestation: The note accurately reflects work and decisions made by me.Dallin King MD 02/25/25 01:59 DALLIN KING MD Feb 25, 2025 00:59
[2025-02-25] MEDS: MESSAGE TO NURSING IV ONE ×3 (01:03→04:31)
[2025-02-25] MEDS: heparin 25,000 UNIT/250ml bag 250 ML IV PRN (01:05)
[2025-02-25 01:14] LABS: APTT 37 SECONDS (22-32); INR 1.0 INR
[2025-02-25 01:50] LABS: LEUKOCYTE ESTERASE ,URINE NEGATIVE (Neg); NITRITES, URINE NEGATIVE (Neg); OCCULT BLOOD,URINE SMALL (Neg)
[2025-02-25 02:00] LABS: UA COLLECTION TYPE CLN CATCH MIDSTREAM
[2025-02-25 02:01] LABS: MUCUS STRANDS FEW /LPF (Neg); SQUAMOUS EPITHELIAL CELL,UR MODERATE /LPF (FEW)
--- NOTE | 2025-02-25 02:06 | RADIOLOGY REPORT ---
EXAM: DI CHEST,SINGLE VIEW CLINICAL HISTORY: CP TECHNIQUE: Single AP view of the chest WID: COMPARISON: XR CHEST 1 VIEW on DOS: 02/04/25 FINDINGS: Lines and tubes: None Chest: Mild cardiomegaly. Mild prominence of the central pulmonary vasculature. No pleural effusion, pneumothorax, or consolidation. The osseous structures are grossly intact. IMPRESSION: Mild cardiomegaly and mild prominence of the central pulmonary vasculature.
--- NOTE | 2025-02-25 02:15 | HISTORY AND PHYSICAL-Residence ---
History & Physical Providers to CC Resident Creating Document: [facility] ~ History of Present Illness Reason for Admit\Complaint: NSTEMI History of Present Illness A 54 years old female with PMH of CHFpEF 60% (02/05/25), Type II MT , TEVIN, Nephrotic syndrome, T2DM, HLD, HTN, substance abuse (Tobacco), s/p appendicectomy, s/p left adrenalectomy for cystic lesion, and who was transferred from the [facility] for the further NSTEMI intervention. Patient endorsed that she has noticed pressure-like central chest pain since yesterday which was getting worse meter went to the [facility]. She was sitting and watching TV when she was having the pain, it was radiating to left arm and neck, had similar pain before bed totally different from her acid reflux, but denied for sweating, palpitations, dizziness lightheadedness, and syncope attack and hemoptysis. She denies any recent flu-like symptoms and sternous exercises an injury to her chest wall before she got the chest pain. She denies using any hormonal replacement therapy, and any recent history of long distance travel , recent cancer diagnosis and its treatment, and sick contact. She is currently vaping with nicotine. In [facility], she was given 4-5 tabs of baby ASA, and put on the ANATOLY heparin. Her Labor Delivery Rn in [place] stated that she might need [facility] Allergies: Coded Allergies: metformin (Verified Adverse Reaction, Unknown, VOMIT, DIARRHEA, 02/25/25) morphine (Verified Adverse Reaction, Unknown, HALLUCINATIONS, 02/25/25) Home Medications Home Medications Active Humalog (Insulin Lispro) 100 Unit/Ml Insuln.pen 0 Unit SQ ACHS 30 Days SLIDING SCALE, MEALTIME INSULIN Less than 150: 0 units 150-199: 2 units 200-249: 4 units 250-299: 7 units 300-349: 10 units 350-400: 13 units Greater than 400: CALL Lasix* (Furosemide) 20 Mg Tablet 1 Tab PO DAILY 30 Days Lantus* (Insulin Glargine) 100 Unit/1 Ml Vial 28 Unit SQ HS 30 Days Lisinopril 10 Mg Tablet 10 Mg PO DAILY 90 Days Jardiance (Empagliflozin) 10 Mg Tablet 1 Tab PO DAILY 30 Days Amlodipine Besylate 5 Mg Tablet 10 Mg PO DAILY 90 Days Reported Metoprolol Succinate 50 Mg Tab.sr.24h 1 Tab PO DAILY Latanoprost 0.005 % Drops 1 Drop EACHEYE HS Ibuprofen 600 Mg Tablet [place] 5/325 MG (Acetaminophen/Hydrocodone Bitart) 5 Mg/325 Mg Tablet 1-2 Tab PO Q4H PRN Glipizide 5 Mg Tablet 1 Tab PO DAILY Gabapentin 400 Mg Capsule 1 Cap PO TID Dorzolamide-Timolol Eye Drops (Dorzolamide HCl/Timolol Maleat) 22.3 Mg-6.8 Mg/Ml Drops EACHEYE Atorvastatin Calcium 80 Mg Tablet 1 Tab PO DAILY Past Medical History Past Medical History -CHFpEF 60% (02/05/25) -Type II MT - TEVIN -Nephrotic syndrome -T2DM -HLD -HTN -substance abuse (Tobacco) Past Surgical History Surgical History Comment - s/p appendicectomy -s/p left adrenalectomy for cystic lesion - Family History Family History: Patient reports no known family medical history. Past Social History Social History Comment She is sober for illicit substance including amphetamine six months now and denied using any other illicit drugs. She quit smoking three years ago and switch to nicotine vaping now. She denies drinking alcohol. Her PCP is Dr. Antunez and fishing instructor in [place] Dr. Handley Drug Use: Methamphetamine ROS All Other Systems: Reviewed and Negative ROS Constitutional: No fever, chills, dizziness, weakness, weight gain or loss Eyes: No pain, erythema, discharge, blurring of vision ENT: No sore throat, epistaxis, tinnitus Cardiovascular: No palpitations, syncope, lower extremity edema, paroxysmal nocturnal dyspnea Respiratory: No shortness of breath, cough, hemoptysis Gastrointestinal: Normal appetite. No nausea, vomiting, diarrhea, constipation, hematemesis, abdominal pain, bloating, melena or fresh blood Genitourinary: No frequency, urgency, nocturia, hematuria or dysuria Musculoskeletal: No arthralgias or myalgias and no chest wall pain Integumentary: No change in skin, hair, nails. No swelling, bruising, abrasions Neurologic: No headache, neck pain, numbness or tingling of the extremities, weakness Psychiatric: No delusions, depression, loss of interest in normal activity or change in sleep pattern, hallucinations, suicidal ideations Endocrine: No fatigue, weakness, polydipsia, polyuria, change in appetite, heat or cold intolerance, sweating, dry skin Hematological: No bleeding, petechiae, bruising Allergies: No asthma or urticaria Exam Vitals: Vital Signs Date Time Temp Pulse Resp B/P (MAP) Pulse Ox O2 Delivery O2 Flow Rate FiO2 02/25/25 02:06 02/25/25 02:02 68 13 95 0 02/25/25 00:41 97.9 General: General: Well alert, well oriented, not confused, not agitated, not in acute distress, well cooperated during the physical. HEENT: HEENT: Conjunctive are pink, sclerae clear, no icterus, pupil is equal in both sides, reactive to light, no ear discharge, no pharyngeal erythema or an edema, mouth and lips are dry. Neck: Neck: Supple, no JVD, no lymphadenopathy and thyromegaly. Chest: Lungs:Equal air entry on both lungs, no additional sounds Cardiovascular: Heart: S1-S2 regular sinus rhythm and, regular rate, no gallops, no rubs, no murmurs Chest wall: No chest wall tenderness Abdomen: Abdomen: No visible peristalsis, Bowel sounds present on auscultation, soft, nontender, no guarding, no rigidity Extremities: Extremities: No obvious deformities, no pitting edema bilaterally, capillary refill intact, able to wiggle toes both sides, peripheral pulsations are intact on both sides Central Nervous System: CROWN BUFFER: No focal neurological deficits, no motor and sensory weakness in all 4 extremities, could move all 4 extremities Musculoskeletal: Musculoskeletal: No joint swelling, deformities, inflammations, and no scoliosis and back tenderness Skin: Skin: No active skin lesions and rashes Diagnostic Data Last Recorded Lab Results: 02/25/25 0048 Diagnostic Data: Laboratory Tests Test 02/25/25 00:48 Prothrombin Time 10.5 SECONDS (9.0-12.0) INR International Normalized Ratio 1.0 INR Activated Partial Thromboplast Time 37 SECONDS (22-32) H Coagulation Comments Counseling Services Smoking & Tobacco Cessation: > 10 Minutes Advance Care Planning Advanced Care plannin - 30 Minutes Additional Plan A 54 years old female with PMH of CHFpEF 60% (02/05/25), Type II MT , TEVIN, Nephrotic syndrome, T2DM, HLD, HTN, substance abuse (Tobacco), s/p appendicectomy, s/p left adrenalectomy for cystic lesion, and who was transferred from the [facility] for the further NSTEMI intervention. # NSTEMI # Hx of CHFpEF 60% (02/05/25) -HS troponin in [facility] showed 0.121, and in ER showed 99 mildly elevated w/ no ST T changes EKG -continue IV Heparin as per cardiac protocol after the loading bolus -Cardiology consultation in the am for the possible cath procedure -continue telemetry -medication reconciliation pending for GDMT CHFpEF -sublingual nitroglycerin as needed for the chest pain if BP allows # HTN # HLD # T2DM # Class I obesity BMI 30.3 -ligation reconciliation pending -HGB A1c, lipid panel, TSH pending -started hypo/hyperglycemic protocol with glargine 28 units and medium dose sliding scale regimen, to adjust later according to the patient RBS and HGB A1c # CKD stage 3 # Non-specific Proteinuria # Hx of Nephrotic syndrome -pending protein urea investigations for her hyper proteinuria including hepatitis-B and C infection -medication reconciliation pending -might be beneficial to consult with Nephrology depends on the labs and indications # substance abuse (nicotine vaping) -strongly encouraged to quit vaping nicotine and educated about the possible risks of abusing -prescribed nicotine patch 14 mg q.day as needed only and explained about the possible side effects of nicotine causing coronary spasm and chest pain CODE STATUS: Full code DVT prophylaxis: ANATOLY heparin Analgesia/sedation: Tylenol/ [place] Lines/tubes: PIV GI prophylaxis: Protonix p.o. Nutrition: Carbs control 75 g, heart healthy Prognosis: Guarded Disposition: Continue medical management including IV heparin, telemetry monitoring, cardiology consultation in the morning, F/up W/pending labs for proteinuria and possible nephrology consultation, PT eval and DC plan. Resident MD attestation: Patient was seen, examined and discussed with attending MD, Dr. Ramesh PORTILLO MD Internal Medicine Resident, PGY3 [facility] Ramesh Addendum #1 Neuro: - Monitor for delirium. #2 CV: Patient presents with evidence of acute coronary syndrome, suspected NSTEMI. - Continue ASA. - anticoagulation with heparin. - Start or continue statin therapy. Consult Cardiology CHF, obtain echocardiogram to differentiate HFpEF from HFrEF. For hypertension, continue home BP medications if hemodynamically stable. #3 Pulm: - Promote incentive spirometry use. - Keep O2 saturation >92%. #4 GI: GERD - Continue Protonix for gastric protection #5 Renal: Monitor closely for acute kidney injury . Hx Nephrotic syndrome - Replete electrolytes as needed. #6 ID: - Monitor for signs of infection #7 Endo: Patient with diabetes mellitus and dyslipidemia. - Initiate insulin sliding scale to maintain serum glucose 150-180. - Continue Lantus - statin therapy and lipid-lowering agents for hyperlipidemia. #8 Heme/Onc: - Monitor for signs of bleeding due to anticoagulation therapy. - Maintain hemoglobin >7 and platelets >10. #9 PPx: - Initiate chemical DVT prophylaxis I saw this patient and completed a full visual exam via audio-visual HIPAA compliant technology. Date of Service: Feb 25, 2025 Billing Provider: MALIK SOSA MD LINDSEY,TIN, RES Feb 25, 2025 02:15 MALIK SOSA MD Feb 25, 2025 11:33
[2025-02-25 02:27] LABS: CREATININE 1.40 MG/DL (0.40-0.90); TOTAL CARBON DIOXIDE 23.9 MMOL/L (24-32); eCRCL 42 ML/MIN; eGFR 39 ML/MIN
[2025-02-25] MEDS ORDERED: potassium Cl 40MEQ/1/2NS 520ml 520 ML IV PRN (02:45)
[2025-02-25] MEDS ORDERED: docusate sod 100mg capsule PO PRN (02:45)
[2025-02-25] MEDS ORDERED: magnesium Cl slow-release 64mg tablet PO PRN (02:45)
[2025-02-25] MEDS ORDERED: magnesium sulf-water 2g/50mL 50 ML IV PRN (02:45)
[2025-02-25] MEDS ORDERED: magnesium hydroxide 30ml (MOM) UD suspension PO PRN (02:45)
[2025-02-25] MEDS ORDERED: magnesium sulf-water 4G/100mL 100 ML IV PRN (02:45)
[2025-02-25] MEDS ORDERED: potassium Cl 20 mEq SR tablet PO PRN ×2 (02:45)
[2025-02-25] MEDS ORDERED: HYDROcodone/acetaminophen 10/325mg tab PO PRN (02:45)
[2025-02-25] MEDS ORDERED: mag hydrox/Alum hydrox/simeth 30ml oral suspension PO PRN (02:45)
[2025-02-25] MEDS ORDERED: HYDROcodone/acetaminophen 5mg/325mg tablet PO PRN (02:45)
[2025-02-25] MEDS ORDERED: ondansetron/PF 4mg/2ml inj IV PRN (02:45)
[2025-02-25] MEDS ORDERED: glucagon, human recombinant 1mg kit SUBCUT PRN (02:55)
[2025-02-25] MEDS ORDERED: DEXTROSE 15 GM of carb/4 tabs (each vial/BOTTLE has 4 tablets) PO PRN ×2 (02:55)
[2025-02-25] MEDS ORDERED: dextrose 50%-water 50ml dispensing syringe IV PRN ×2 (02:55)
[2025-02-25 03:17] LABS: PHOSPHORUS 4.4 MG/DL (2.3-4.5); PRO BRAIN NATRIURETIC PEPTIDE 154 PG/ML (0-125)
[2025-02-25] MEDS: heparin 10,000 units/1 ML INJ IV PRN (04:31)
--- NOTE | 2025-02-25 06:57 | ELECTROCARDIOGRAPH REPORT ---
[facility] Test Date: 2025-02-25 Test Time: 01:33:47 Pat Name: ROMULO MCGUIRE Department: EMERGENCY ROOM Room: [place] [address] B Gender: F Csw: : 1970 Requested By: JERRY KING Order Number: [id number] Reading MD: Dr. Missael Talavera Measurements Intervals [place] Rate: 66 P: 71 GA: 162 QRS: 120 QRSD: 111 T: 26 QT: 435 QTc: 456 Interpretive Statements Sinus rhythm Right axis deviation Baseline wander in lead(s) V2 Electronically Signed On 03-01-2025 16:50:[address] Missael Talavera Please click the below link to view image of tracing.
[2025-02-25] MEDS: INSULIN LISPRO 100 UNIT/ML INSULN.PEN MULTI-DOSE SQ SCH (07:00)
[2025-02-25] MEDS: pantoprazole 40mg Tablet.DR PO SCH (07:30)
[2025-02-25] MEDS: K and/or MAG REPLACEMENT MC SCH (08:00)
[2025-02-25 11:58] LABS: URINE AMPHETAMINE SCREEN NEGATIVE (Neg); URINE BARBITUATE SCREEN NEGATIVE (Neg); URINE BENZODIAZEPINES SCREEN NEGATIVE (Neg); URINE CANNABINOID SCREEN NEGATIVE (Neg); URINE COCAINE SCREEN NEGATIVE (Neg); URINE METHADONE SCREEN NEGATIVE (Neg); URINE OPIATE SCREEN NEGATIVE (Neg); URINE PHENCYCLIDINE SCREEN NEGATIVE (Neg)
--- NOTE | 2025-02-25 17:42 | PROGRESS NOTE- Residence ---
Progress Note - Resident Providers to CC Resident Creating Document: CULLEN BERRIOS RES ~ Antibiotic Timeout Antibiotic Ordered?: No Subjective Patient was seen at the bedside today. she denies any chest pain. her left shoulder and neck pain is better compared to yesterday. no complaints of vomiting, palpitation, short of breath. Patient told us she did not have any chest pain event [facility] Objective Vital Signs Date Time Temp Pulse Resp B/P (MAP) Pulse Ox O2 Delivery O2 Flow Rate FiO2 02/25/25 08:00 Room Air 0.0 02/25/25 06:00 97.0 67 22 134/62 (86 94 Result Diagram: 02/25/258 02/25/258 General: Well alert, well oriented, not confused, not agitated, not in acute distress, well cooperated during the physical. HEENT: Conjunctive are pink, sclerae clear, no icterus, pupil is equal in both sides, reactive to light, no ear discharge, no pharyngeal erythema or an edema, mouth and lips are dry. Neck: Supple, no JVD, no lymphadenopathy and thyromegaly. Lungs:Equal air entry on both lungs, no additional sounds Heart: S1-S2 regular sinus rhythm and, regular rate Abdomen: soft, nontender, no guarding, no rigidity.No visible peristalsis, Bowel sounds present on auscultation. Extremities: Left shoulder: Tenderness on palpitation No obvious deformities, no pitting edema bilaterally, able to wiggle toes both sides, peripheral pulsations are intact on both sides Musculoskeletal: No joint swelling, deformities,or back tenderness Skin: No active skin lesions and rashes Central Nervous System:No focal neurological deficits, no motor and sensory weakness in all 4 extremities Coagulation Studies Laboratory Tests Test 02/25/25 00:48 02/25/25 03:18 Prothrombin Time 10.5 SECONDS (9.0-12.0) INR International Normalized Ratio 1.0 INR Activated Partial Thromboplast Time 37 SECONDS (22-32) H APTT (Heparin Protocol) 32 SECONDS (45-60) L Coagulation Comments Assessment Assessment A 54 year old female transferred from [facility] for evaluation of chest pain/left shoulder pain Plan Plan left shoulder pain Admitted for evaluation of ACS Patient reported she experienced left shoulder pain initially and denied any chest pain EKG: sinus rhythm, nonspecific st changes. Chest x-ray: Mild cardiomegaly and mild prominence of the central pulmonary vasculature. Urine tox negative -HS troponin in [facility] showed 0.121, and in ER showed 99 mildly elevated w/ no ST T changes EKG stress test in january 2025 at [facility] negative, Echocardiography in january 2025 Normal LV size and function. Mild concentric hypertrophy. LVEF is 60%. A patient started on heparin drip in [facility] and transferred to our hospital, we stopped heparin drip today Left shoulder x-ray ordered We will continue atorvastatin ED, metoprolol 50 daily Diabetes Mellitus a1c 11.1( 02/05/25),urine ketones negative On 28 units Lantus HS at home we will continue with medium dose sliding scale CHF with preserved ejection fraction mild exacerbation Hypertension Patient reported mild orthopnea BP is within reference range We will continue metoprolol 50 daily, lisinopril added Acute on Chronic Kidney Disease Creatinine 1.40 (1.08 in january 2025), BUN 22, gfr 39 urine protein >300 lasix 20mg Iv once daily I&o monitoring Follow urine lytes Substance abuse (nicotine vaping): History of methamphetamine, quit using methamphetamine six months ago strongly encouraged to quit vaping nicotine and educated about the possible risks of abusing prescribed nicotine patch 14 mg q.day as needed only and explained about the possible side effects of nicotine causing coronary spasm and chest pain. Medication reconciliation was not done until the end of the shift, I continue medication as last admission and adjusted appropriately. we will re-evaluate patient tomorrow CODE STATUS: Full code DVT prophylaxis: Heparin subQ Analgesia/sedation: Tylenol/ [place] Lines/tubes: PIV GI prophylaxis: Protonix p.o. Nutrition: Carbs control 75 g, heart healthy Prognosis: Guarded Disposition: Continue medical management. Cullen Berrios MD Internal Medicine Resident Date of Service: Feb 25, 2025 Billing Provider: AGAPITO LATHAM MD Common Visit Codes: [id number] INP/OBS CARE(HIGH) CULLEN BERRIOS, RES Feb 25, 2025 17:42 AGAPIOT LATHAM MD Feb 26, 2025 06:16
--- NOTE | 2025-02-25 19:31 | RADIOLOGY REPORT ---
EXAM: DI SHOULDER, COMPLETE (MIN 2 VWS), VASC VL VENOUS REASON FOR EXAM: pain TECHNIQUE: Internally and externally rotated AP views and Y-view of the left shoulder are submitted f or review. COMPARISON: None FINDINGS: The bones demonstrate normal mineralization. There is no acute fracture or dislocation. Th ere is no widening of the acromioclavicular joint. The soft tissues are unremarkable. IMPRESSION: No acute fracture or dislocation.
[2025-02-25] MEDS: latanoprost 0.005% 2.5ml ophthalmic drops EACHEYE SCH (21:57)
[2025-02-25] MEDS: metoprolol succinate 25mg (24-HOUR) SR. Tablet PO SCH (21:57)
[2025-02-25] MEDS: heparin, porcine 5000 units/ml vial SQ SCH (21:57)
[2025-02-25] MEDS: dorzolamide/timolol (Cosopt) ophthalmic drops 10ml bottle EACHEYE SCH (21:58)
[2025-02-25] MEDS: insulin glargine (Lantus) pen - multi-dose SQ SCH (22:01)
[2025-02-26] VITALS (8 sets, daily range): BP systolic 101–133; BP diastolic 60–82; PULSE 60–74; RESP 12–18; TEMP 97.1–98.2; O2SAT 95–100
[2025-02-26 06:28] LABS: MEAN PLATELET VOLUME 8.9 FL (7.4-10.4); RED CELL DISTRIBUTION WIDTH 12.8 % (11.5-14.5)
[2025-02-26 06:43] LABS: CREATININE 1.04 MG/DL (0.40-0.90); LACTATE DEHYDROGENASE 174 U/L (81-234); TOTAL CARBON DIOXIDE 23.1 MMOL/L (24-32); eCRCL 57 ML/MIN; eGFR 56 ML/MIN
[2025-02-26] MEDS: aspirin 81mg, enteric-coated 1 TAB TABLET.DR PO SCH (09:14)
[2025-02-26] MEDS: EMPAGLIFLOZIN 10 MG TABLET PO SCH (09:16)
--- NOTE | 2025-02-26 11:41 | PROGRESS NOTE- Residence ---
Progress Note - Resident Providers to CC Resident Creating Document: CULLEN BERRIOS RES ~ Antibiotic Timeout Antibiotic Ordered?: No Subjective Patient seen and examined at the bedside denied any chest pain shortness of breath, or shoulder pain today. Objective Vital Signs Date Time Temp Pulse Resp B/P (MAP) Pulse Ox O2 Delivery O2 Flow Rate FiO2 02/26/25 09:15 74 02/26/25 08:00 12 96 Room Air 02/26/25 06:00 98.2 131/76 (94) 02/25/25 08:00 0.0 Result Diagram: 02/26/2553002/26/25530 General: Well alert, well oriented, not confused, not agitated, not in acute distress, well cooperated during the physical. HEENT: Conjunctive are pink, sclerae clear, no icterus, pupil is equal in both sides, reactive to light, no ear discharge, no pharyngeal erythema or an edema, mouth and lips are dry. Neck: Supple, no JVD, no lymphadenopathy and thyromegaly. Lungs:Equal air entry on both lungs, no additional sounds Heart: S1-S2 regular sinus rhythm and, regular rate Abdomen: soft, nontender, no guarding, no rigidity.No visible peristalsis, Bowel sounds present on auscultation. Extremities: Left shoulder: Tenderness on palpitation has been improving No obvious deformities, no pitting edema bilaterally, able to wiggle toes both sides, peripheral pulsations are intact on both sides Musculoskeletal: No joint swelling, deformities,or back tenderness Skin: No active skin lesions and rashes Central Nervous System:No focal neurological deficits, no motor and sensory weakness in all 4 extremities Coagulation Studies Laboratory Tests Test 02/25/25 00:48 02/25/25 03:18 Prothrombin Time 10.5 SECONDS (9.0-12.0) INR International Normalized Ratio 1.0 INR Activated Partial Thromboplast Time 37 SECONDS (22-32) H APTT (Heparin Protocol) 32 SECONDS (45-60) L Coagulation Comments Assessment Assessment A 54 year old female transferred from [facility] for evaluation of chest pain/left shoulder pain Plan Plan CHF with preserved ejection fraction mild exacerbation Chest pain/left shoulder pain Type 2 [place], demand ischemia Hypertension Patient admitted for further workup Chest x-ray: Mild cardiomegaly and mild prominence of the central pulmonary vasculature. Urine tox negative -HS troponin in [facility] showed 0.121, and in ER showed 99 mildly elevated w/ no ST T changes [facility], EKG: sinus rhythm, nonspecific st changes. Echocardiography in january 2025 Normal LV size and function. Mild concentric hypertrophy. LVEF is 60%. A patient started on heparin drip in [facility] and transferred to our hospital, we stopped heparin drip today Left shoulder x-ray ordered Patient reported mild orthopnea We will continue metoprolol 50 daily, amlodipine five, lisinopril added Lasix 20 IV daily started Diabetes Mellitus a1c 11.1( 02/05/25),urine ketones negative On 28 units Lantus HS at home we will continue with medium dose sliding scale Blood glucose is not controlled we will increase the Lantus to 30 Acute on Chronic Kidney Disease Vasomotor nephropathy Creatinine 1.40 (1.08 in january 2025), BUN 22, gfr 39 urine protein >300 lasix 20mg Iv once daily I&o monitoring Follow urine lytes Substance abuse (nicotine vaping): History of methamphetamine, quit using methamphetamine six months ago strongly encouraged to quit vaping nicotine and educated about the possible risks of abusing prescribed nicotine patch 14 mg q.day as needed only and explained about the possible side effects of nicotine causing coronary spasm and chest pain. Medication reconciliation was not done until the end of the shift, I continue medication as last admission and adjusted appropriately. we will re-evaluate patient tomorrow CODE STATUS: Full code DVT prophylaxis: Heparin subQ Analgesia/sedation: Tylenol/ [place] Lines/tubes: PIV GI prophylaxis: Protonix p.o. Nutrition: Carbs control 75 g, heart healthy Prognosis: Guarded Disposition: Continue medical management, possible discharge tomorrow Cullen Berrios MD Internal Medicine Resident Date of Service: Feb 26, 2025 Billing Provider: AGAPITO LATHAM MD Common Visit Codes: [id number] INP/OBS CARE(HIGH) CULLEN BERRIOS, GRANT Feb 26, 2025 11:41 AGAPITO LATHAM MD Feb 27, 2025 06:54
[2025-02-26] MEDS ORDERED: latanoprost 0.005% 2.5ml ophthalmic drops EACHEYE SCH (21:00)
[2025-02-26] MEDS: insulin glargine (Lantus) pen - multi-dose SQ SCH (21:39)
[2025-02-26] MEDS: INSULIN LISPRO 100 UNIT/ML INSULN.PEN MULTI-DOSE SQ SCH (21:39)
[2025-02-27 02:00] VITALS: BP 106/74; PULSE 61; RESP 12; TEMP 97.4; O2SAT 94
[2025-02-27 05:22] LABS: HBSAG SCREEN Negative (Negative); HEPATITIS C VIRUS ANTIBODY Reactive (Non Reactive)
[2025-02-27 05:51] LABS: MEAN PLATELET VOLUME 9.0 FL (7.4-10.4); RED CELL DISTRIBUTION WIDTH 12.9 % (11.5-14.5)
[2025-02-27 06:00] VITALS: BP 93/54; PULSE 59; RESP 12; TEMP 97.5; O2SAT 98
[2025-02-27 06:28] LABS: CREATININE 1.43 MG/DL (0.40-0.90); TOTAL CARBON DIOXIDE 22.0 MMOL/L (24-32); eCRCL 41 ML/MIN; eGFR 39 ML/MIN
[2025-02-27 08:00] VITALS: RESP 12; O2SAT 98
[2025-02-27] MEDS ORDERED: non-formulary drug (Metoprolol Succinate 1 TAB) PO SCH (08:00)
[2025-02-27] MEDS ORDERED: non-formulary drug (Atorvastatin Calcium 1 TAB) PO SCH (08:00)
[2025-02-27 09:11] LABS: IMMUNOGLOBULIN G, QN, SERUM 841 mg/dL (586-1602); IMMUNOGLOBULIN M, QN, SERUM 98 mg/dL (26-217)
[2025-02-27] MEDS ORDERED: LANTUS SQ (09:13)
[2025-02-27] MEDS ORDERED: FURO-150 PO (09:13)
[2025-02-27] MEDS ORDERED: LISI10TA27 PO (09:15)
[2025-02-27 11:00] VITALS: BP 117/55; PULSE 65; RESP 15; TEMP 96.9; O2SAT 96
--- NOTE | 2025-02-27 14:48 | DISCHARGE SUMMARY-Residence ---
Discharge Summary Providers to CC Resident Creating Document: CULLEN ORTEGA RES ~ Discharge Summary Admission Diagnosis: NSTEMI Hospital Course DATE OF ADMISSION: DATE OF DISCHARGE: Hospital course: A 54 year old female transferred from [facility] for evaluation of chest pain/left shoulder pain and mildly elevated troponin admitted for ACS workup. CHF with preserved ejection fraction mild exacerbation Chest pain/left shoulder pain Type 2 [place], demand ischemia Hypertension Chest x-ray: Mild cardiomegaly and mild prominence of the central pulmonary vasculature. Urine tox negative -HS troponin in [facility] showed 0.121, and in ER showed 99 mildly elevated w/ no ST T changes EKG stress test in january 2025 at [facility] negative, EKG: sinus rhythm, nonspecific st changes. Echocardiography in january 2025 Normal LV size and function. Mild concentric hypertrophy. LVEF is 60%. Left shoulder x-ray no acute pathology Patient reported mild orthopnea We will continue metoprolol 50 daily, amlodipine five, lisinopril added, Lasix 20 IV daily started Uncontrolled Diabetes Mellitus a1c 11.1( 02/05/25),urine ketones negative On 28 units Lantus HS at home we will continue with medium dose sliding scale Blood glucose is not controlled we will increase the Lantus to 30 Acute on Chronic Kidney Disease Vasomotor nephropathy Creatinine 1.40 (1.08 in january 2025), BUN 22, gfr 39, urine protein >300 lasix 20mg Iv once daily, I&o monitoring Substance abuse (nicotine vaping): History of methamphetamine, quit using methamphetamine six months ago strongly encouraged to quit vaping nicotine and educated about the possible risks of abusing prescribed nicotine patch 14 mg q.day as needed only and explained about the possible side effects of nicotine causing coronary spasm and chest pain. Due to hypotension we stopped hydrochlorothiazide medication and decrease the dose of lisinopril. 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 need to follow up with PCP. Laboratory Tests Test 02/25/25 17:02 02/25/25 18:51 02/25/25 21:49 02/26/25 05:31 Glucometer 277 mg/dl 283 mg/dl Troponin I High Sensitivity 116 ng/L Troponin I High Sens Percent Delta 5 % Troponin I Hi Sens Absolute Change 6 ng/L White Blood Count 6.5 X10'3 Red Blood Count 4.84 X10'6 Hemoglobin 14.4 g/dl Hematocrit 41.2 % Mean Corpuscular Volume 85.1 FL Mean Corpuscular Hemoglobin 29.8 PG Mean Corpuscular Hemoglobin Concent 35.0 g/dL Red Cell Distribution Width 12.8 % Platelet Count 246 X10'3 Mean Platelet Volume 8.9 FL Neutrophils (%) (Auto) 57.8 % Lymphocytes (%) (Auto) 31.7 % Monocytes (%) (Auto) 6.7 % Eosinophils (%) (Auto) 3.1 % Basophils (%) (Auto) 0.7 % Neutrophils # (Auto) 3.7 X10'3 Lymphocytes # (Auto) 2.0 X10'3 Monocytes # (Auto) 0.4 X10'3 Eosinophils # (Auto) 0.2 X10'3 Basophils # (Auto) 0.0 X10'3 CBC Comment Sodium Level 136 MMOL/L Potassium Level 3.9 MMOL/L Chloride Level 103 MMOL/L Carbon Dioxide Level 23.1 MMOL/L Anion Gap 10 Blood Urea Nitrogen 28 MG/DL Creatinine 1.04 MG/DL Estimated GFR/1.73 m2 56 ML/MIN BUN/Creatinine Ratio 26.9 Glucose Level 253 MG/DL Calcium Level 9.2 MG/DL Total Bilirubin 0.4 MG/DL Aspartate Amino Transf (AST/SGOT) 35 U/L Alanine Aminotransferase (ALT/SGPT) 27 U/L Alkaline Phosphatase 89 IU/L Lactate Dehydrogenase 174 U/L Total Protein 6.3 G/DL Albumin 2.8 G/DL Globulin 3.5 G/DL Albumin/Globulin Ratio 0.8 Chemistry Comments Immunoglobulin G 841 mg/dL Immunoglobulin A 239 mg/dL Immunoglobulin M 98 mg/dL Test 02/26/25 07:15 02/26/25 12:04 02/26/25 17:05 02/26/25 21:15 Glucometer 237 mg/dl 345 mg/dl 378 mg/dl 321 mg/dl Test 02/27/25 05:24 02/27/25 07:09 White Blood Count 6.7 X10'3 Red Blood Count 4.87 X10'6 Hemoglobin 14.6 g/dl Hematocrit 40.9 % Mean Corpuscular Volume 84.1 FL Mean Corpuscular Hemoglobin 29.9 PG Mean Corpuscular Hemoglobin Concent 35.6 g/dL Red Cell Distribution Width 12.9 % Platelet Count 240 X10'3 Mean Platelet Volume 9.0 FL Neutrophils (%) (Auto) 49.2 % Lymphocytes (%) (Auto) 38.6 % Monocytes (%) (Auto) 8.3 % Eosinophils (%) (Auto) 3.0 % Basophils (%) (Auto) 0.9 % Neutrophils # (Auto) 3.3 X10'3 Lymphocytes # (Auto) 2.6 X10'3 Monocytes # (Auto) 0.6 X10'3 Eosinophils # (Auto) 0.2 X10'3 Basophils # (Auto) 0.1 X10'3 CBC Comment Sodium Level 133 MMOL/L Potassium Level 4.0 MMOL/L Chloride Level 100 MMOL/L Carbon Dioxide Level 22.0 MMOL/L Anion Gap 11 Blood Urea Nitrogen 42 MG/DL Creatinine 1.43 MG/DL Estimated GFR/1.73 m2 39 ML/MIN BUN/Creatinine Ratio 29.4 Glucose Level 279 MG/DL Calcium Level 9.2 MG/DL Total Bilirubin 0.4 MG/DL Aspartate Amino Transf (AST/SGOT) 17 U/L Alanine Aminotransferase (ALT/SGPT) 26 U/L Alkaline Phosphatase 96 IU/L Total Protein 6.3 G/DL Albumin 2.9 G/DL Globulin 3.4 G/DL Albumin/Globulin Ratio 0.9 Chemistry Comments Glucometer 284 mg/dl Physical exam on discharge day General: Awake and Alert, no acute distress. HEENT: Conjunctiva pink, Sclera clear, Mucus Membranes moist. Neck: Supple without masses and tenderness. Resp: Lungs clear to auscultation bilaterally. Heart: Regular Rate and rhythm, normal S1 and S2 Abdomen: Soft and non tender Extremities: No cyanosis,clubbing or edema. Skin: Warm and Dry. Neurological: Speech is clear, alert, and oriented x 4, no gross neurological deficits Patient discharged home with following instruction: Please follow-up with your PCP in one week. 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 Measure your blood pressure at home, your systolic blood pressure should be less than 140. We decreased the dose of lisinopril from 10 mg to 5 mg daily. We will increase the dose of night insulin to control your blood pressure better. Return to hospital if your symptoms getting worse, Ask your primary care doctor to refer you to physical therapy for your shoulder pain and back pain. Avoid taking ibuprofen daily it is harmful for your heart and kidney. Use topical NSAID and Tylenol for your pain. Discharge Diagnosis\Comment: Heart failure with preserved ejection fraction with mild exacerbation Chest/left shoulder pain Type 2 demand ischemia Hypertension Uncontrolled diabetes mellitus type 2 Acute on chronic kidney failure Substance abuse nicotine vaping Operations\Procedures: none Consultants: none Complications: none Condition on DC: Stable New Medications: Furosemide (Lasix) 20 Mg Tablet 20 MG PO every other day for 14 Days, #7 TAB Changed Medications: Insulin Glargine,Hum.rec.anlog* (Lantus*) 100 Unit/1 Ml Vial 30 UNIT SQ HS for 30 Days, #9 ML (Changed from: 28 UNIT) Lisinopril (Lisinopril) 10 Mg Tablet 5 MG PO DAILY for 30 Days, #30 TAB (Changed from: 10 MG; 90; 90) Continued Medications: Amlodipine Besylate (Amlodipine Besylate) 5 Mg Tablet 10 MG PO DAILY for 90 Days, #180 TAB Atorvastatin Calcium (Atorvastatin Calcium) 80 Mg Tablet 1 TAB PO DAILY Empagliflozin (Jardiance) 10 Mg Tablet 1 TAB PO DAILY for 30 Days, #30 TAB 0 Refills Gabapentin (Gabapentin) 400 Mg Capsule 1 CAP PO TID Glipizide (Glipizide) 5 Mg Tablet 1 TAB PO DAILY Hydrocodone Bit/Acetaminophen 5/325 MG ([place] 5/325 MG) 5 Mg/325 Mg Tablet 1-2 TAB PO Q4H PRN for pain Ibuprofen (Ibuprofen) 600 Mg Tablet Insulin Lispro (Humalog) 100 Unit/Ml Insuln.pen 0 UNIT SQ ACHS for 30 Days, #12 ML SLIDING SCALE, MEALTIME INSULIN Less than 150: 0 units 150-199: 2 units 200-249: 4 units 250-299: 7 units 300-349: 10 units 350-400: 13 units Greater than 400: CALL Latanoprost (Latanoprost) 0.005 % Drops 1 DROP EACHEYE HS Metoprolol Succinate (Metoprolol Succinate) 50 Mg Tab.sr.24h 1 TAB PO DAILY Discontinued Medications: Dorzolamide HCl/Timolol Maleat (Dorzolamide-Timolol Eye Drops) 22.3 Mg-6.8 Mg/Ml Drops EACHEYE Furosemide* (Lasix*) 20 Mg Tablet 1 TAB PO DAILY for 30 Days, #30 TAB Discharge Summary: See hospital course *Problems/Diagnosis: (1) CHF exacerbation Status: Acute Total Time Spent on D/C: > 30 Minutes Date of Service: Feb 27, 2025 Billing Provider: AGAPITO LATHAM MD Common Visit Codes: [id number]/[id number] DISCH DAY >30min CULLEN ORTEGA, RES Feb 27, 2025 14:43 AGAPITO LATHAM MD Feb 28, 2025 07:35
== END 2025-02-27 12:21 | disposition home or self-care (01) | DRG 194 ==
LOC: ER 00:25 → ED HOLD 02:09 → PCU 3S 04:09
PROVIDERS: ADMIT Internal Medicine Pulmonary Disease; ATTEND Internal Medicine
DX: I13.0 Hypertensive heart and chronic kidney disease with heart failure and stage 1 through stage 4 chronic kidney disease, or unspecified chronic kidney disease (principal); N17.0 Acute kidney failure with tubular necrosis; I21.A1 Myocardial infarction type 2; E11.22 Type 2 diabetes mellitus with diabetic chronic kidney disease; I50.33 Acute on chronic diastolic (congestive) heart failure; G89.29 Other chronic pain; M54.9 Dorsalgia, unspecified; Z68.30 Body mass index [BMI] 30.0-30.9, adult; E66.811 Obesity, class 1; N18.30 Chronic kidney disease, stage 3 unspecified; E78.5 Hyperlipidemia, unspecified; K21.9 Gastro-esophageal reflux disease without esophagitis; M25.512 Pain in left shoulder; Z79.899 Other long term (current) drug therapy; Z88.8 Allergy status to other drugs, medicaments and biological substances
CPT/HCPCS: 36415; 71045; 73030; 80048; 80053; 80076; 80305; 81001; 82784; 82948; 83615; 83735; 83880; 84100; 84132; 84443; 84484; 85025; 85610; 85730; 86334; 86803; 86885; 86900; 86901; 87081; 87340; 87522; 93005; 99291; G0378; J1644; J1815; J1938; J2270